=== PATIENT | female | born 1985 | race Caucasian/White ===

== ENCOUNTER → 2016-11-25 | Outpatient (CLI) | payer OTHER ==
[2014-09-20 22:23] VITALS: BP 112/56
[~2016-11-25] MED LIST: ACET325T9 PO; ALBU8.5H8 IH; CETI10TA22 PO; METO10TA81 PO; NORG1TAB7 PO; OMEP40CA2 PO; ONDA4TAB12 PO; PSEU120T46 PO
--- NOTE | 2016-11-25 10:54 | RAD ---
DATE: 11/25/2016 EXAM: DIGITAL DIAGNOSTIC BILATERAL, BREAST RIGHT HISTORY: Breast lump COMPARISON: Baseline study This study was interpreted with the benefit of Computerized Aided Detection (CAD). The breast parenchyma is heterogeneously dense, which could reduce sensitivity of mammography. Breast parenchyma level C. FINDINGS: A BB was placed over the area of palpable concern at the 10-11 o'clock location on the right. The fibroglandular tissues in the breasts are symmetric. No mass is identified. No microcalcifications are seen. A medium-sized benign-appearing lymph node is noted in the right axillary region. Right breast ultrasound, 11/25/2016: A target ultrasound exam of the upper outer quadrant of the right breast was performed. Normal heterogeneous fibroglandular shadows are seen. No cystic or solid breast mass is evident. IMPRESSION: 1. No mammographic evidence of malignancy in either breast. 2. The targeted ultrasound exam of the right breast reveals no abnormality. Further clinical surveillance of any area of palpable concern is suggested. BI-RADS CATEGORY: 1 NEGATIVE RECOMMENDED FOLLOW-UP: CLIN FOLLOW UP IMAGING CLINICALLY INDICATED PQRS compliance statement: Patient information was entered into a reminder system with a target due date for the next mammogram. Mammography is a sensitive method for finding small breast cancers, but it does not detect them all and is not a substitute for careful clinical examination. A negative mammogram does not negate a clinically suspicious finding and should not result in delay in biopsying a clinically suspicious abnormality. "Our facility is accredited by the [employer] Mammography Program."
== END | disposition home or self-care (01) ==
LOC: US 09:56
PROVIDERS: ATTEND Nurse Practitioner Family
DX: N63 Unspecified lump in breast (principal)
CPT/HCPCS: 76641; G0204; 77066

== ENCOUNTER → 2017-09-30 | Outpatient (CLI) | payer OTHER ==
[2014-09-20 22:23] VITALS: BP 112/56
[~2017-09-30] MED LIST changes: +PSEU120T10 PO; -PSEU120T46 PO
--- NOTE | 2017-09-30 09:34 | RAD ---
Three-view left ankle radiographs 09/30/2017 CLINICAL HISTORY: Left ankle pain. The patient fell one week ago. AP, lateral and oblique digital radiographs of the left ankle were obtained. The left ankle mortise is intact. No fracture or dislocation of the left ankle is seen. IMPRESSION: No fracture or dislocation of the left ankle is seen. Electronically signed by: Patric Lyman MD (09/30/2017 9:30 AM) [facility]
== END | disposition home or self-care (01) ==
LOC: RAD 08:51
PROVIDERS: ATTEND Physician Assistant Medical
DX: M25.572 Pain in left ankle and joints of left foot (principal); Z91.81 History of falling
CPT/HCPCS: 73610

== ENCOUNTER 2018-02-21 02:59 | Emergency (ER) | payer OTHER ==
[~2018-02-21] VITALS: Ht 162.6 cm; Wt 73.5 kg
[2018-02-21] MEDS ORDERED: PRED20TA PO (03:12)
--- NOTE | 2018-02-21 03:14 | PHYS DOC ---
Adult General Chief Complaint Chief Complaint rash HPI HPI This is very pleasant 32 years old female presented to the emergency department with a one-week history of hives all over her body chest abdomen and legs upper extremities is been trying today could have Benadryl at home without much help Review of Systems Review of Systems Constitutional: Denies fever or chills [] Eyes: Denies change in visual acuity, redness, or eye pain [] HENT: Denies nasal congestion or sore throat [] Respiratory: Denies cough or shortness of breath [] Cardiovascular: No additional information not addressed in HPI [] GI: Denies abdominal pain, nausea, vomiting, bloody stools or diarrhea [] : Denies dysuria or hematuria [] Musculoskeletal: Denies back pain or joint pain [] Integument: Denies rash or skin lesions [] Neurologic: Denies headache, focal weakness or sensory changes [] Endocrine: Denies polyuria or polydipsia [] All other systems were reviewed and found to be within normal limits, except as documented in this note. Allergies Allergies Allergies Coded Allergies Type Severity Reaction Last Updated Verified carbinoxamine Allergy Mild HIVES 09/12/13 Yes codeine Allergy Mild HEADACHE 09/12/13 Yes latex Allergy Mild RESH 09/12/13 Yes promethazine Adverse Reaction Intermediate CONVULSION 09/12/13 No Physical Exam Physical Exam Constitutional: Well developed, well nourished, no acute distress, non-toxic appearance. [] HENT: Normocephalic, atraumatic, bilateral external ears normal, oropharynx moist, no oral exudates, nose normal. [] Eyes: PERRLA, EOMI, conjunctiva normal, no discharge. [] Neck: Normal range of motion, no tenderness, supple, no stridor. [] Cardiovascular:Heart rate regular rhythm, no murmur [] Lungs & Thorax: Bilateral breath sounds clear to auscultation [] Abdomen: Bowel sounds normal, soft, no tenderness, no masses, no pulsatile masses. [] Back: No tenderness, no CVA tenderness. [] Extremities: No tenderness, no cyanosis, no clubbing, ROM intact, no edema. [] Neurologic: Alert and oriented X 3, normal motor function, normal sensory function, no focal deficits noted. [] Psychologic: Affect normal, judgement normal, mood normal. [] EKG EKG [] Radiology/Procedures Radiology/Procedures [] Course & Med Decision Making Course & Med Decision Making Pertinent Labs and Imaging studies reviewed. (See chart for details) [] Final Impression Final Impression [] Problems: (1) Hives Dragon Disclaimer Dragon Disclaimer This electronic medical record was generated, in whole or in part, using a voice recognition dictation system. SERA MORENO MD Feb 21, 2018 03:14
[2018-02-21] MEDS ORDERED: FAMOTIDINE 20 MG TABLET PO ONE (03:15)
[2018-02-21] MEDS ORDERED: diphenhydrAMINE HCL 25 MG CAPSULE PO ONE ×2 (03:15→03:24)
[2018-02-21] MEDS ORDERED: predniSONE 20 MG TABLET PO ONE (03:15)
[2018-02-21] MEDS ORDERED: FAMOTIDINE 20 MG TABLET ONE (03:24)
[2018-02-21] MEDS ORDERED: predniSONE 20 MG TABLET ONE (03:24)
[2018-02-21] MEDS: diphenhydrAMINE 50 MG/ML VIAL IV ONE (03:43)
[2018-02-21] MEDS: methylPREDNISolone SOD SUCC PF 125 MG/2 ML VIAL. IV ONE (03:44)
[2018-02-21] MEDS: FAMOTIDINE 20 MG/2 ML VIAL IVP ONE (03:44)
[2018-02-21 04:10] VITALS: BP 113/67
[2018-02-22] MEDS ORDERED: TAMS0.4C97 PO (06:46)
[2018-02-22] MEDS ORDERED: OXYC-323 PO (06:46)
[2018-02-22] MEDS ORDERED: ONDA4TAB10 SL (06:46)
== END 2018-02-21 04:10 | disposition home or self-care (01) ==
LOC: ER 02:59
DX: L50.9 Urticaria, unspecified (principal); Z88.8 Allergy status to other drugs, medicaments and biological substances; Z88.5 Allergy status to narcotic agent; Z91.040 Latex allergy status
CPT/HCPCS: 96374; 96375; 99284; J1200; J2930; S0028

== ENCOUNTER 2018-02-22 05:11 | Emergency (ER) | payer OTHER ==
[~2018-02-22] VITALS: Ht 162.6 cm; Wt 73.5 kg
[~2018-02-22 05:11] MED LIST changes: +PRED20TA PO
--- NOTE | 2018-02-22 05:43 | ED.ADGEN ---
Past History Past Medical History: Asthma, Other (SERA MORENO MD) Past Surgical History: Cholecystectomy, Other (SERA MORENO MD) Smoking: Non-smoker Alcohol Use: None Drug Use: None (SERA MORENO MD) Adult General Chief Complaint Chief Complaint Abdominal pain (SERA MORENO MD) HPI HPI 32 years old female presented to the emergency department with left flank pain radiates to the left lower quadrant associated with nausea. [Around 3:30 in the morning no fever no chills no urgency . No hematuria (SERA MORENO MD) Review of Systems Review of Systems Constitutional: Denies fever or chills [] Eyes: Denies change in visual acuity, redness, or eye pain [] HENT: Denies nasal congestion or sore throat [] Respiratory: Denies cough or shortness of breath [] Cardiovascular: No additional information not addressed in HPI [] GI: Denies abdominal pain, nausea, vomiting, bloody stools or diarrhea [] Musculoskeletal: Denies back pain or joint pain [] Integument: Denies rash or skin lesions [] Neurologic: Denies headache, focal weakness or sensory changes [] Endocrine: Denies polyuria or polydipsia [] All other systems were reviewed and found to be within normal limits, except as documented in this note. (SERA MORENO MD) Current Medications Current Medications Current Medications Medications (Trade) Dose Ordered Sig/Ivan Start Time Stop Time Status Last Admin Dose Admin Ketorolac Tromethamine (Toradol 30mg Vial) 30 mg 1X ONCE 02/22/18 06:30 02/22/18 06:31 DC 02/22/18 06:06 30 MG Morphine Sulfate (Morphine 4mg Syringe) 4 mg 1X ONCE 02/22/18 06:00 02/22/18 06:01 DC 02/22/18 05:57 4 MG Ondansetron HCl (Zofran) 4 mg 1X ONCE 02/22/18 06:30 02/22/18 06:31 DC 02/22/18 06:07 4 MG Sodium Chloride 1,000 ml @ 1,000 mls/hr 1X ONCE 02/22/18 06:30 02/22/18 07:29 02/22/18 06:08 1,000 MLS/HR (REGAN NGUYEN MD) Allergies Allergies Allergies Coded Allergies Type Severity Reaction Last Updated Verified carbinoxamine Allergy Mild HIVES 09/12/13 Yes codeine Allergy Mild HEADACHE 09/12/13 Yes latex Allergy Mild RESH 09/12/13 Yes promethazine Adverse Reaction Intermediate CONVULSION 09/12/13 No (REGAN NGUYEN MD) Physical Exam Physical Exam Constitutional: Well developed, well nourished, no acute distress, non-toxic appearance. [] HENT: Normocephalic, atraumatic, bilateral external ears normal, oropharynx moist, no oral exudates, nose normal. [] Eyes: PERRLA, EOMI, conjunctiva normal, no discharge. [] Neck: Normal range of motion, no tenderness, supple, no stridor. [] Cardiovascular:Heart rate regular rhythm, no murmur [] Lungs & Thorax: Bilateral breath sounds clear to auscultation [] Abdomen: Bowel sounds normal, soft, no tenderness, no masses, no pulsatile masses. [] Skin: Warm, dry, no erythema, no rash. [] Back: No tenderness, no CVA tenderness. [] Extremities: No tenderness, no cyanosis, no clubbing, ROM intact, no edema. [] Neurologic: Alert and oriented X 3, normal motor function, normal sensory function, no focal deficits noted. [] Psychologic: Affect normal, judgement normal, mood normal. [] (SERA MORENO MD) Current Patient Data Vital Signs Vital Signs Date Time Temp Pulse Resp B/P (MAP) Pulse Ox O2 Delivery O2 Flow Rate FiO2 02/22/18 05:57 18 98 Room Air 02/22/18 05:15 97.6 89 (REGAN NGUYEN MD) Lab Results Laboratory Tests Test 02/22/18 05:20 02/22/18 05:31 02/22/18 05:45 Urine Collection Type Unknown Urine Color Yellow Urine Clarity Clear Urine pH 6.0 Urine Specific [place] 1.025 Urine Protein Neg (NEG-TRACE) Urine Glucose (UA) Neg mg/dL (NEG) Urine Ketones (Stick) Neg mg/dL (NEG) Urine Blood Trace (NEG) Urine Nitrite Neg (NEG) Urine Bilirubin Neg (NEG) Urine Urobilinogen Dipstick 0.2 mg/dL (0.2 mg/dL) Urine Leukocyte Esterase Neg (NEG) Urine RBC Occ /HPF (0-2) Urine WBC Occ /HPF (0-4) Urine Squamous Epithelial Cells Many /LPF Urine Bacteria 0 /HPF (0-FEW) Urine Test Negative (NEG) POC Urine HCG, Qualitative hcg negative (Negative) White Blood Count 13.0 x10^3/uL (4.0-11.0) H Red Blood Count 4.05 x10^6/uL (3.50-5.40) Hemoglobin 12.9 g/dL (12.0-15.5) Hematocrit 37.8 % (36.0-47.0) Mean Corpuscular Volume 93 fL (79-100) Mean Corpuscular Hemoglobin 32 pg (25-35) Mean Corpuscular Hemoglobin Concent 34 g/dL (31-37) Red Cell Distribution Width 12.7 % (11.5-14.5) Platelet Count 375 x10^3/uL (140-400) Neutrophils (%) (Auto) 77 % (31-73) H Lymphocytes (%) (Auto) 15 % (24-48) L Monocytes (%) (Auto) 8 % (0-9) Eosinophils (%) (Auto) 0 % (0-3) Basophils (%) (Auto) 0 % (0-3) Neutrophils # (Auto) 10.1 x10^3uL (1.8-7.7) H Lymphocytes # (Auto) 1.9 x10^3/uL (1.0-4.8) Monocytes # (Auto) 1.0 x10^3/uL (0.0-1.1) Eosinophils # (Auto) 0.0 x10^3/uL (0.0-0.7) Basophils # (Auto) 0.0 x10^3/uL (0.0-0.2) Sodium Level 141 mmol/L (136-145) Potassium Level 3.7 mmol/L (3.5-5.1) Chloride Level 104 mmol/L (98-107) Carbon Dioxide Level 26 mmol/L (21-32) Anion Gap 11 (6-14) Blood Urea Nitrogen 11 mg/dL (7-20) Creatinine 0.9 mg/dL (0.6-1.0) Estimated GFR (Cockcroft-Gault) 72.6 BUN/Creatinine Ratio 12 (6-20) Glucose Level 134 mg/dL (70-99) H Calcium Level 9.0 mg/dL (8.5-10.1) Total Bilirubin 0.2 mg/dL (0.2-1.0) Aspartate Amino Transferase (AST) 10 U/L (15-37) L Alanine Aminotransferase (ALT) 25 U/L (14-59) Alkaline Phosphatase 64 U/L (46-116) Total Protein 7.4 g/dL (6.4-8.2) Albumin 4.0 g/dL (3.4-5.0) Albumin/Globulin Ratio 1.2 (1.0-1.7) Lipase 88 U/L (73-393) (REGAN NGUYEN MD) EKG EKG [] (ESRA MORENO MD) Radiology/Procedures Radiology/Procedures [] (SERA MORENO MD) Radiology/Procedures PROCEDURE: CT ABDOMEN PELVIS WO CONTRAST CT abdomen and pelvis without contrast: Reason for examination: Left flank pain and left lower quadrant pain. Helical images were obtained through the abdomen and pelvis with no intravenous or oral contrast administered. Reconstruction was performed in sagittal and coronal planes. Exposure: One or more of the following individualized dose reduction techniques were utilized for this examination: 1. Automated exposure control 2. Adjustment of the mA and/or kV according to patient size 3. Use of iterative reconstruction technique. The lung bases are clear. The heart size is normal with no pericardial effusion evident. No abnormality seen at the liver, spleen, adrenal glands or pancreas. The gallbladder surgically absent. The abdominal aorta and inferior vena cava show no acute abnormalities. No abnormality seen at the appendix. The intestinal tract shows no dilatation or obstruction at the colon and no evidence of diverticulosis or diverticulitis. The small intestine is not distended or obstructed. The stomach is not distended. The right kidney shows no renal masses or hydronephrosis. There are small nonobstructing calculi present in the right kidney but no obstructive uropathy is seen. The left kidney shows no renal mass. There are small nonobstructing calculi in the left kidney. There is also mild hydronephrosis which appears to be due to an obstructing calculus at the left ureteral vesicle junction measuring 3.9 mm in greatest dimension. The bladder is not distended. No abnormality seen at the uterus or ovaries. There is a trace of free fluid in the pelvic cul-de-sac. No acute bony abnormalities are seen. IMPRESSION: 3.9 mm calculus at the left ureterovesical junction with mild hydronephrosis. Small nonobstructing calculi in the kidneys bilaterally. Small amount of free fluid in the pelvic cul-de-sac. (REGAN NGUYEN MD) Course & Med Decision Making Course & Med Decision Making Pertinent Labs and Imaging studies reviewed. (See chart for details) [] (SERA MORENO MD) Course & Med Decision Making 6:40 AM: Patient care was assumed from Dr. Moreno at 6 AM shift change. The patient awoke this morning with sudden onset left flank pain, and left lower abdominal pain. She has not had any hematuria. She has had some nausea and vomiting. On exam, she has diffuse left-sided mid and lower abdominal tenderness to palpation, with left CVA tenderness. She has no definite focal suprapubic tenderness to palpation. She has not had any vaginal bleeding or discharge. She has not had any fevers or chills. Her labs been reviewed, and are largely unremarkable, save for mild leukocytosis. Urinalysis is unremarkable. She does have evidence for kidney stone on CT. I discussed test results with the patient, was feeling significantly better at this time. Her pain is significantly improved. I discussed home care plan, the need for close urology follow-up, urine straining , and return precautions. (RGEAN NGUYEN MD) Final Impression Final Impression [] Problems: (1) Flank pain (SERA MORENO MD) Final Impression Kidney stone (REGAN NGUYEN MD) Dragon Disclaimer Dragon Disclaimer This electronic medical record was generated, in whole or in part, using a voice recognition dictation system. (SERA MORENO MD) SERA MORENO MD Feb 22, 2018 05:43 REGAN NGUYEN MD Feb 22, 2018 06:43
[2018-02-22 05:57] LABS: BASO % 0 % (0-3); EOS % 0 % (0-3); HEMATOCRIT 37.8 % (36.0-47.0); HEMOGLOBIN 12.9 g/dL (12.0-15.5); LYMPH # 1.9 x10^3/uL (1.0-4.8); LYMPH % 15 % (24-48); MEAN CORPUSCULAR HEMOGLOBIN 32 pg (25-35); MEAN CORPUSCULAR HGB CONC 34 g/dL (31-37); MEAN CORPUSCULAR VOLUME 93 fL (79-100); MONO % 8 % (0-9); NEUT # 10.1 x10^3uL (1.8-7.7); NEUT % 77 % (31-73); PLATELET COUNT 375 x10^3/uL (140-400); RED BLOOD COUNT 4.05 x10^6/uL (3.50-5.40); RED CELL DISTRIBUTION WIDTH 12.7 % (11.5-14.5)
[2018-02-22 06:00] LABS: CLARITY,URINE CLEAR; COLOR,URINE YELLOW
[2018-02-22] MEDS ORDERED: MORPHINE SULFATE 4 MG/ML DISP.SYRIN. IV ONE (06:00)
[2018-02-22 06:01] LABS: BACTERIA,URINE 0 /HPF (0-FEW); BILIRUBIN,URINE NEG (NEG); GLUCOSE,URINE NEG (NEG); NITRITE,URINE NEG (NEG); RBC,URINE OCC /HPF (0-2); SQUAMOUS EPITHELIAL CELL,UR MANY /LPF; U PREG PATIENT NEGATIVE (NEG); UROBILINOGEN,URINE 0.2 mg/dL (0.2 mg/dL); WBC,URINE OCC /HPF (0-4)
[2018-02-22 06:07] LABS: ALBUMIN/GLOBULIN RATIO 1.2 (1.0-1.7); CREATININE 0.9 mg/dL (0.6-1.0); GFR 72.6; POTASSIUM 3.7 mmol/L (3.5-5.1); TOTAL BILIRUBIN 0.2 mg/dL (0.2-1.0); TOTAL PROTEIN 7.4 g/dL (6.4-8.2)
[2018-02-22 06:27] VITALS: BP 112/60
[2018-02-22] MEDS ORDERED: KETOROLAC 30 MG/ML VIAL. IV ONE (06:30)
[2018-02-22] MEDS ORDERED: IV NORMAL SALINE 1,000ML 1,000 ML IV ONE (06:30)
[2018-02-22] MEDS ORDERED: ONDANSETRON PF 4 MG/2 ML VIAL. IV ONE (06:30)
--- NOTE | 2018-02-22 06:30 | RAD ---
CT abdomen and pelvis without contrast: Reason for examination: Left flank pain and left lower quadrant pain. Helical images were obtained through the abdomen and pelvis with no intravenous or oral contrast administered. Reconstruction was performed in sagittal and coronal planes. Exposure: One or more of the following individualized dose reduction techniques were utilized for this examination: 1. Automated exposure control 2. Adjustment of the mA and/or kV according to patient size 3. Use of iterative reconstruction technique. The lung bases are clear. The heart size is normal with no pericardial effusion evident. No abnormality seen at the liver, spleen, adrenal glands or pancreas. The gallbladder surgically absent. The abdominal aorta and inferior vena cava show no acute abnormalities. No abnormality seen at the appendix. The intestinal tract shows no dilatation or obstruction at the colon and no evidence of diverticulosis or diverticulitis. The small intestine is not distended or obstructed. The stomach is not distended. The right kidney shows no renal masses or hydronephrosis. There are small nonobstructing calculi present in the right kidney but no obstructive uropathy is seen. The left kidney shows no renal mass. There are small nonobstructing calculi in the left kidney. There is also mild hydronephrosis which appears to be due to an obstructing calculus at the left ureteral vesicle junction measuring 3.9 mm in greatest dimension. The bladder is not distended. No abnormality seen at the uterus or ovaries. There is a trace of free fluid in the pelvic cul-de-sac. No acute bony abnormalities are seen. IMPRESSION: 3.9 mm calculus at the left ureterovesical junction with mild hydronephrosis. Small nonobstructing calculi in the kidneys bilaterally. Small amount of free fluid in the pelvic cul-de-sac. Electronically signed by: Janice Hoyt MD (02/22/2018 6:27 AM) [id number]
[2018-02-22] MEDS ORDERED: OXYC-323 PO (06:46)
[2018-02-22] MEDS ORDERED: TAMS0.4C97 PO (06:46)
[2018-02-22] MEDS ORDERED: ONDA4TAB10 SL (06:46)
== END 2018-02-22 06:55 | disposition home or self-care (01) ==
LOC: ER 05:11
DX: N13.2 Hydronephrosis with renal and ureteral calculous obstruction (principal); R11.2 Nausea with vomiting, unspecified; J45.909 Unspecified asthma, uncomplicated; Z90.49 Acquired absence of other specified parts of digestive tract; Z88.5 Allergy status to narcotic agent; Z91.040 Latex allergy status; Z88.8 Allergy status to other drugs, medicaments and biological substances
CPT/HCPCS: 36415; 74176; 80053; 81001; 81025; 83690; 85025; 96361; 96374; 96375; 99285; J1885; J2270; J2405; J7030

== ENCOUNTER 2018-03-02 22:15 | Emergency (ER) | payer OTHER ==
[~2018-03-02] VITALS: Ht 160 cm; Wt 73.5 kg
[~2018-03-02 22:15] MED LIST changes: +ONDA4TAB10 SL; +OXYC-323 PO; +TAMS0.4C97 PO
[2018-03-02] MEDS ORDERED: FAMOTIDINE 20 MG TABLET PO ONE ×2 (22:30→23:15)
[2018-03-02] MEDS ORDERED: predniSONE 10 MG TABLET PO ONE (22:30)
[2018-03-02] MEDS ORDERED: diphenhydrAMINE HCL 25 MG CAPSULE PO ONE (22:30)
[2018-03-02 22:31] VITALS: BP 114/84
[2018-03-02] MEDS ORDERED: FAMO-63 PO (22:37)
[2018-03-02] MEDS ORDERED: FEXO180T81 PO (22:37)
[2018-03-02] MEDS ORDERED: PRED50TA PO (22:37)
[2018-03-02] MEDS ORDERED: DEXAMETHASONE SOD PHOS 10 MG/ML VIAL IM ONE (22:45)
[2018-03-02] MEDS ORDERED: diphenhydrAMINE 50 MG/ML VIAL IM ONE (22:45)
[2018-03-02] MEDS ORDERED: HYDR50CA PO (22:58)
[2018-03-02] MEDS ORDERED: FAMOTIDINE 20 MG TABLET ONE (23:08)
--- NOTE | 2018-03-03 05:16 | ED.ADGEN ---
Past History Past Medical History: Asthma, Other Past Surgical History: Cholecystectomy, Other Smoking: Non-smoker Alcohol Use: None Drug Use: None Adult General Chief Complaint Chief Complaint Hives HPI HPI Patient is a 32-year-old female treated for hives several days ago with prednisone and Pepcid and Benadryl presents with recurrent prostatitis starting 2 days ago. No shortness breath, wheezing, chest tenderness. Diffuse blotchy hives over torso, extremities. Patient has history of skin allergy, hives and has occurred extensive allergy treatment and testing. She is unable to identify new, allergens, household products foods or medications.[] Review of Systems Review of Systems Review symptoms as per history of present illness. All other review symptoms are negative. a [] All other systems were reviewed and found to be within normal limits, except as documented in this note. Current Medications Current Medications Current Medications Medications (Trade) Dose Ordered Sig/Ivan Start Time Stop Time Status Last Admin Dose Admin Dexamethasone Sodium Phosphate (Decadron) 10 mg 1X ONCE 03/02/18 22:45 03/02/18 22:46 DC 03/02/18 22:50 10 MG Diphenhydramine HCl (Benadryl) 50 mg 1X ONCE 03/02/18 22:45 03/02/18 22:46 DC 03/02/18 23:04 50 MG Famotidine (Pepcid) 20 mg STK-MED ONCE 03/02/18 23:08 03/02/18 23:11 DC Prednisone (Prednisone) 50 mg 1X ONCE 03/02/18 22:30 03/02/18 22:34 DC Allergies Allergies Allergies Coded Allergies Type Severity Reaction Last Updated Verified carbinoxamine Allergy Mild HIVES 09/12/13 Yes codeine Allergy Mild HEADACHE 09/12/13 Yes latex Allergy Mild RESH 09/12/13 Yes promethazine Adverse Reaction Intermediate CONVULSION 09/12/13 No Physical Exam Physical Exam Constitutional: Well developed, well nourished, no acute distress, non-toxic appearance. [] HENT: Normocephalic, atraumatic, bilateral external ears normal, oropharynx moist, no oral exudates, nose normal. [] Eyes: PERRLA, EOMI, conjunctiva normal, no discharge. [] Neck: Normal range of motion, no tenderness, supple, no stridor. [] Cardiovascular:Heart rate regular rhythm, no murmur [] Lungs & Thorax: Bilateral breath sounds clear to auscultation [] Abdomen: Bowel sounds normal, soft, no tenderness, no masses, no pulsatile masses. [] Skin: Diffuse blotchy hives to torso, extremities. [] Back: No tenderness, no CVA tenderness. [] Extremities: No tenderness, no cyanosis, no clubbing, ROM intact, no edema. [] Neurologic: Alert and oriented X 3, normal motor function, normal sensory function, no focal deficits noted. [] Psychologic: Affect normal, judgement normal, mood normal. [] Current Patient Data Vital Signs Vital Signs Date Time Temp Pulse Resp B/P (MAP) Pulse Ox O2 Delivery O2 Flow Rate FiO2 03/02/18 22:31 98.4 109 16 98 EKG EKG [] Radiology/Procedures Radiology/Procedures [] Course & Med Decision Making Course & Med Decision Making Pertinent Labs and Imaging studies reviewed. (See chart for details) [Steroids, antihistamines given. Recommend continued care and close PCP/ scientific laboratory supervisor follow-up.] Final Impression Final Impression [#1 urticaria] Dragon Disclaimer Dragon Disclaimer This electronic medical record was generated, in whole or in part, using a voice recognition dictation system. SHANIKA TORRES DO Mar 03, 2018 05:16
== END 2018-03-02 23:10 | disposition home or self-care (01) ==
LOC: ER 22:15
DX: L50.8 Other urticaria (principal); J45.909 Unspecified asthma, uncomplicated; Z88.5 Allergy status to narcotic agent; Z91.040 Latex allergy status; Z88.8 Allergy status to other drugs, medicaments and biological substances
CPT/HCPCS: 96372; 99284; J1100; J1200

== ENCOUNTER 2018-07-03 16:41 | Emergency (ER) | payer OTHER ==
[~2018-07-03] VITALS: Ht 160 cm; Wt 75.7 kg
[~2018-07-03 16:41] MED LIST changes: +ALBU2.5V8 IH; -ALBU8.5H8 IH; +FAMO-63 PO; +FEXO180T81 PO; +HYDR50CA PO; -OXYC-323 PO; +OXYC1TAB15 PO; +PRED50TA PO
[2018-07-03 16:58] VITALS: BP 154/83
[2018-07-03] MEDS ORDERED: ORPH-16 PO (17:08)
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
[2018-07-03] MEDS ORDERED: ONDA4TAB12 PO (17:26)
[2018-07-03] MEDS ORDERED: ONDANSETRON ODT 4 MG TAB.RAPDIS ONE (17:27)
[2018-07-03] MEDS ORDERED: ONDANSETRON ODT 4 MG TAB.RAPDIS PO ONE (17:30)
[2018-07-03] MEDS ORDERED: KETOROLAC 30 MG/ML VIAL. IM ONE (17:30)
== END 2018-07-03 17:29 | disposition home or self-care (01) ==
LOC: ER 16:43
DX: S39.012A Strain of muscle, fascia and tendon of lower back, initial encounter (principal); V43.52XA Car driver injured in collision with other type car in traffic accident, initial encounter; Y93.I9 Activity, other involving external motion; Y92.488 Other paved roadways as the place of occurrence of the external cause; Y99.8 Other external cause status
CPT/HCPCS: 96372; 99283; J1885; Q0162

== ENCOUNTER → 2018-07-24 | Outpatient (CLI) | payer OTHER ==
[2018-07-03 16:58] VITALS: BP 154/83
[~2018-07-24] MED LIST changes: +ORPH-16 PO
--- NOTE | 2018-07-24 08:56 | RAD ---
Thyroid ultrasound, 07/24/2018: HISTORY: Thyroid enlargement The right lobe of the gland measures 5.0 x 2.1 x 1.3 cm while the left lobe of the gland measures 4.7 x 1.6 x 1.3 cm. The thyroid echo pattern is heterogeneous with numerous tiny subcentimeter nodules present bilaterally. There appears to be a faint isoechoic nodule medially in the lower pole of the left lobe of the gland measuring 12 mm in greatest diameter. No calcifications are seen. A 7 mm smooth predominantly hypoechoic nodule is present laterally in the right lower lobe superiorly. There are low level internal echoes with posterior acoustic enhancement suggesting a complicated cyst. There is a cluster of 2 smaller but otherwise similar nodules in the upper pole of the left lobe of the gland. An 8 mm relatively isoechoic nodule is seen along the posterior/inferior margin of the right lobe of the thyroid gland. It is unclear whether this represents an extension of thyroid tissue or a separate nodule such as a prominent parathyroid gland. A similar small nodule is seen along the lower pole of the left lobe of the gland. IMPRESSION: 1. Enlarged multinodular thyroid gland as described above. The sonographic characteristics of these nodules are nonspecific, however, no highly suspicious nodules are seen. 2. Small nodules along the inferior margins of both lobes of the thyroid gland raising possibility of prominent parathyroid glands. Correlation with laboratory findings is suggested. Electronically signed by: Francisco Victor MD (07/24/2018 8:53 AM) [facility]
== END | disposition home or self-care (01) ==
LOC: US 07:21
PROVIDERS: ATTEND Registered Nurse
DX: E04.2 Nontoxic multinodular goiter (principal)
CPT/HCPCS: 76536

== ENCOUNTER 2019-07-10 03:19 | Emergency (ER) | payer OTHER ==
[~2019-07-10] VITALS: Ht 160 cm; Wt 81.3 kg
[~2019-07-10 03:19] MED LIST changes: -CETI10TA22 PO; +CETI10TA24 PO
[2019-07-10 03:38] VITALS: BP 154/83
--- NOTE | 2019-07-10 03:48 | PHYS DOC ---
Past History Past Medical History: Asthma, Migraines, Other Past Surgical History: Cholecystectomy, Other Smoking: Non-smoker Alcohol Use: Occasionally Drug Use: None Adult General Chief Complaint Chief Complaint: SKIN RASH/ABSCESS HPI HPI 33-year-old female presents with rash. The patient woke up at 245 this morning feeling jittery and a bit short of breath. She looked at her skin and realized that she had urticaria breaking out in [place] locations. The patient has been having urticarial reactions lately for an unknown reason. She sees a layer up who thinks that she may have small vessel vasculitis. She was told that if she ever had rash with any shortness of breath she should come to the hospital. The patient took Zyrtec, ranitidine, and 75 mg Benadryl prior to arrival. She feels like the shortness of breath is better at this time. The rash has not receded, but she does not believe it has spread anymore. She denies fever or chills. Review of Systems Review of Systems Constitutional: Denies fever or chills [] Eyes: Denies change in visual acuity, redness, or eye pain [] HENT: Denies nasal congestion or sore throat [] Respiratory: Denies cough or shortness of breath [] Cardiovascular: No additional information not addressed in HPI [] GI: Denies abdominal pain, nausea, vomiting, bloody stools or diarrhea [] : Denies dysuria or hematuria [] Musculoskeletal: Denies back pain or joint pain [] Integument: Rash [] Neurologic: Denies headache, focal weakness or sensory changes [] Endocrine: Denies polyuria or polydipsia [] All other systems were reviewed and found to be within normal limits, except as documented in this note. Current Medications Current Medications Current Medications Medications (Trade) Dose Ordered Sig/[facility] Start Time Stop Time Status Last Admin Dose Admin Methylprednisolone Sodium Succinate (SOLU-Medrol 125MG VIAL) 125 mg 1X ONCE 07/10/19 03:45 07/10/19 03:46 UNV Allergies Allergies Allergies Coded Allergies Type Severity Reaction Last Updated Verified carbinoxamine Allergy Mild HIVES 09/12/13 Yes codeine Allergy Mild HEADACHE 09/12/13 Yes latex Allergy Mild RESH 09/12/13 Yes promethazine Adverse Reaction Intermediate CONVULSION 09/12/13 No Physical Exam Physical Exam Constitutional: Well developed, well nourished, no acute distress, non-toxic appearance. [] HENT: Normocephalic, atraumatic, bilateral external ears normal, oropharynx moist, no oral exudates, nose normal. [] Eyes: PERRLA, EOMI, conjunctiva normal, no discharge. [] Neck: Normal range of motion, no tenderness, supple, no stridor. [] Cardiovascular:Heart rate regular rhythm, no murmur [] Lungs & Thorax: Bilateral breath sounds clear to auscultation [] Abdomen: Bowel sounds normal, soft, no tenderness, no masses, no pulsatile masses. [] Skin: Urticaria on the patient's upper back, bilateral arms bilateral legs.[] Back: No tenderness, no CVA tenderness. [] Extremities: No tenderness, no cyanosis, no clubbing, ROM intact, no edema. [] Neurologic: Alert and oriented X 3, normal motor function, normal sensory function, no focal deficits noted. [] Psychologic: Affect normal, judgement normal, mood normal. [] EKG EKG [] Radiology/Procedures Radiology/Procedures [] Course & Med Decision Making Course & Med Decision Making Pertinent Labs and Imaging studies reviewed. (See chart for details) The patient is having an urticarial reaction to something. She is were taken in a drill and antihistamines. I ordered 125 of Solu-Medrol IM. We will observe her and ensure that her symptoms do not progress. The patient's redness has started to proceed. She's had no further issues with her breathing. [] Dragon Disclaimer Dragon Disclaimer This electronic medical record was generated, in whole or in part, using a voice recognition dictation system. Departure Departure: Impression: Primary Impression: Hives Disposition: HOME, SELF-CARE Condition: IMPROVED Referrals: MELCHOR BAUTISTA (PCP) Patient Instructions: Eliseo Cgua-mr-Wldm SHANIKA ROY DO Jul 10, 2019 03:48
[2019-07-10] MEDS ORDERED: methylPREDNISolone SOD SUCC PF 125 MG/2 ML VIAL. IM ONE (04:00)
== END 2019-07-10 04:20 | disposition home or self-care (01) ==
LOC: ER 03:19
DX: L50.9 Urticaria, unspecified (principal); J45.909 Unspecified asthma, uncomplicated; G43.909 Migraine, unspecified, not intractable, without status migrainosus; Z88.5 Allergy status to narcotic agent; Z91.040 Latex allergy status; Z88.8 Allergy status to other drugs, medicaments and biological substances
CPT/HCPCS: 96372; 99283; J2930

== ENCOUNTER → 2020-02-03 | Outpatient (CLI) | payer OTHER ==
[~2020-02-03] MED LIST changes: +BIRTH CONTROL; -CETI10TA24 PO; +CETI10TA74 PO; +FLUT9.9S NS; +LEVO25TA55 PO; +OMAL150V SQ
== END | disposition home or self-care (01) ==
LOC: LAB 09:05
PROVIDERS: ATTEND Nurse Anesthetist, Certified Registered
DX: Z01.812 Encounter for preprocedural laboratory examination (principal); Z12.11 Encounter for screening for malignant neoplasm of colon; R19.7 Diarrhea, unspecified; Z20.828 Contact with and (suspected) exposure to other viral communicable diseases
CPT/HCPCS: U0003-CS

== ENCOUNTER → 2020-02-06 | Day surgery (SDC) | payer OTHER ==
[~2020-02-06] MED LIST changes: +IPRATRPIUM/ALBUTEROL 0.5/2.5MG 3 ML NEBU. NEB PRN; +IV RINGERS SOLUTION,LACTATED 1,000 ML IV SCH; +LIDOCAINE 2% PF 5 ML VIAL. ONE; +MIDAZOLAM HCL PF 2 MG/2 ML VIAL. IV ONE; +ONDANSETRON PF 4 MG/2 ML VIAL. IV PRN; +ONDANSETRON PF 4 MG/2 ML VIAL. ONE; +PROPOFOL 10,000 MCG/ML (20ML) VIAL IV ONE
[2020-02-06 09:08] LABS: U PREG PATIENT NEGATIVE (NEG)
[2020-02-06 10:35] VITALS: BP 132/77
--- NOTE | 2020-02-07 15:08 | PATHOLOGY ---
[facility] Accession Number: [id number] . 01 Material submitted: . colon - RANDOM COLON BX . 02 Diagnosis: Colonic mucosa, random colon biopsies: - No significant pathologic abnormalities. (JPM:isaías; 02/07/2020) S 02/07/2020 1051 Local . 02 Comment: Sections of the random colon biopsy reveal multiple segments of colonic mucosa. There is no evidence of a chronic destructive colitis, lymphocytic colitis, or collagenous colitis. (JPM:isaías; 02/07/2020) . 02 Electronically signed: . Stefano Toscano MD, Pathologist NPI- [id number] . 01 Gross description: . The specimen is received in formalin, labeled "Alana Tae, random colon biopsy". Received are multiple segments of pale sidhu soft tissue ranging in size from 0.4 to 0.7 cm in maximum dimensions. The specimen is submitted entirely in cassette A1. ([facility]; 02/06/2020) QA/QA 02/06/2020 1822 Local . 02 Pathologist provided ICD-10: Z12.11 . 02 CPT . 639494 Specimen Comment: A courtesy copy of this report has been sent to [phone] Specimen Comment: Report sent to / DR BAUTISTA Performed at: 01 [facility] [address], [place] [id number] MD Damián Rivero MD Phone: [phone] Performed at: 02 [facility] [address] [place], [place] [id number] MD Stefano Toscano MD Phone: [phone]
== END | disposition home or self-care (01) ==
LOC: SURG 08:29
PROVIDERS: ATTEND Internal Medicine Gastroenterology
DX: R19.7 Diarrhea, unspecified (principal); K63.89 Other specified diseases of intestine; J45.909 Unspecified asthma, uncomplicated; G43.909 Migraine, unspecified, not intractable, without status migrainosus; Z90.49 Acquired absence of other specified parts of digestive tract; Z98.890 Other specified postprocedural states; Z79.899 Other long term (current) drug therapy; Z88.6 Allergy status to analgesic agent; Z88.8 Allergy status to other drugs, medicaments and biological substances; Z91.040 Latex allergy status
CPT/HCPCS: 45380; 81025; 87177; 87209; 87493; 87505; 88305; J2001; J2405; J2704; J7120; 36415

== ENCOUNTER → 2021-03-24 | Outpatient (CLI) | payer OTHER ==
[2020-02-06 10:35] VITALS: BP 132/77
[~2021-03-24] MED LIST changes: -IPRATRPIUM/ALBUTEROL 0.5/2.5MG 3 ML NEBU. NEB PRN; -IV RINGERS SOLUTION,LACTATED 1,000 ML IV SCH; -LIDOCAINE 2% PF 5 ML VIAL. ONE; -MIDAZOLAM HCL PF 2 MG/2 ML VIAL. IV ONE; -ONDANSETRON PF 4 MG/2 ML VIAL. IV PRN; -ONDANSETRON PF 4 MG/2 ML VIAL. ONE; -PROPOFOL 10,000 MCG/ML (20ML) VIAL IV ONE
[2021-03-24 13:21] LABS: BASO % 0 % (0-3); EOS % 1 % (0-3); HEMATOCRIT 38.3 % (36.0-47.0); HEMOGLOBIN 12.8 g/dL (12.0-15.5); LYMPH # 1.8 x10^3/uL (1.0-4.8); LYMPH % 33 % (24-48); MEAN CORPUSCULAR HEMOGLOBIN 31 pg (25-35); MEAN CORPUSCULAR HGB CONC 33 g/dL (31-37); MEAN CORPUSCULAR VOLUME 94 fL (79-100); MONO # 0.5 x10^3/uL (0.0-1.1); MONO % 10 % (0-9); NEUT # 3.1 x10^3uL (1.8-7.7); NEUT % 56 % (31-73); PLATELET COUNT 344 x10^3/uL (140-400); RED BLOOD COUNT 4.07 x10^6/uL (3.50-5.40); RED CELL DISTRIBUTION WIDTH 13.9 % (11.5-14.5); WHITE BLOOD COUNT 5.5 x10^3/uL (4.0-11.0)
[2021-03-24 13:27] LABS: ALBUMIN 3.8 g/dL (3.4-5.0); CREATININE 0.7 mg/dL (0.6-1.0); DIRECT BILIRUBIN 0.1 mg/dL (0.0-0.2); GFR 95.2; TOTAL BILIRUBIN 0.3 mg/dL (0.2-1.0); TOTAL PROTEIN 8.1 g/dL (6.4-8.2)
--- NOTE | 2021-03-24 16:30 | RAD ---
History: Reason: GERD, vomiting, dysphagia / Spl. Instructions: / History: Procedure: The patient ate a standard meal containing 2.0 mCi Tc-99m sulfur colloid. Scintigraphic images of the abdomen were obtained. Counts were obtained. Findings: Retention percentages are as follows: 1 Hr: 21 percent 2 Hr:5 percent 3 Hr:0 percent Normal Retention Percentage Range is as Follows: 1 Hr: 35-91% 2 Hr: 2.7-60% 3 Hr: 0.5-28% 4 Hr: 0-10% Impression: No evidence of delayed gastric emptying. Gastric retention is 21 percent at the 1 hour time point wh ich is faster than typically seen. This correlates with the time to half emptying of 40 minutes. Electronically signed by: Talat Esqueda MD (03/24/2021 4:28 PM) [id number]
[2021-03-26 15:14] LABS: C ANCA <1:20 titer (Neg:<1:20); P ANCA <1:20 titer (Neg:<1:20)
== END ==
LOC: NM 08:24
PROVIDERS: ATTEND Internal Medicine Rheumatology
DX: K21.9 Gastro-esophageal reflux disease without esophagitis (principal); R11.0 Nausea; R13.10 Dysphagia, unspecified; K31.84 Gastroparesis; R89.9 Unspecified abnormal finding in specimens from other organs, systems and tissues; L50.1 Idiopathic urticaria
CPT/HCPCS: 78264; 80076; 82565; 85025; 86140; 86256; A9541; 36415

== ENCOUNTER → 2021-04-30 | Outpatient (CLI) | payer OTHER ==
[2020-02-06 10:35] VITALS: BP 132/77
[~2021-04-30] MED LIST changes: +DOXY100C3 PO; +FAMO40TA4 PO; +LACT1CAP37 PO; +MAGN400C PO; +METR-34 PO; +OMAL150S SQ; +OMEP40CA7 PO; +SUMA1TAB12 PO; +naproxen PO
== END ==
LOC: LAB 15:17
PROVIDERS: ATTEND Internal Medicine Gastroenterology
DX: Z01.812 Encounter for preprocedural laboratory examination (principal); Z20.822 Contact with and (suspected) exposure to COVID-19; K21.9 Gastro-esophageal reflux disease without esophagitis; R13.10 Dysphagia, unspecified
CPT/HCPCS: U0003

== ENCOUNTER 2021-05-04 18:49 | Emergency (ER) | payer OTHER ==
[~2021-05-04] VITALS: Ht 160 cm; Wt 82.3 kg
[~2021-05-04 18:49] MED LIST changes: -MAGN400C PO; -SUMA1TAB12 PO; -naproxen PO
[2021-05-04] MEDS ORDERED: SUMAtriptan SUCC 6 MG/0.5 ML VIAL SQ ONE (20:15)
[2021-05-04] MEDS ORDERED: diphenhydrAMINE 50 MG/ML VIAL IVP ONE (20:15)
[2021-05-04] MEDS ORDERED: METOCLOPRAMIDE HCL 10 MG/2 ML VIAL. IVP ONE (20:15)
[2021-05-04] MEDS ORDERED: IV NORMAL SALINE 1,000ML 1,000 ML IV ONE (20:15)
[2021-05-04] MEDS ORDERED: KETOROLAC 15 MG/ML VIAL. IVP ONE (20:15)
--- NOTE | 2021-05-04 20:15 | PHYS DOC ---
Past History Past Medical History: Asthma, Migraines, Other Additional Past Medical Histor: auto immune disease, chronic idiopathic uticaria (MELL MATIAS) Past Surgical History: Cholecystectomy, Tonsillectomy, Other Additional Past Surgical Histo: adenoids removed, sinus, lump removed right breast (MELL MATIAS) Smoking: Non-smoker Alcohol Use: Occasionally Drug Use: None (MELL MATIAS) General Adult EDM: Chief Complaint: HEADACHE HPI: HPI: Patient is a 35 year old female who presents with headache that began 2 days ago. Patient reports she has a history of migraines. Patient gave almost 5 months ago, and was unable to take her normal medications during that time. She called her primary care doctor, Dr. Huston, who stated that because it has been too long since her last in-person visit, she cannot represcribe the medication at this time. For the past couple of days, she has taken ibuprofen, magnesium supplement and [address] Huston recommended she present to the emergency department for "migraine shot and IV fluids." Patient reports associated photophobia, phonophobia, lightheadedness and nausea, but denies any emesis at this time. She states that the Imitrex did help, but she woke up this morning with a full return of symptoms. She has no other complaints at this time. Patient has allergy to Phenergan. (MELL MATIAS) Review of Systems: Review of Systems: ROS negative except as mentioned in HPI. (MELL MATIAS) Allergies: Allergies: Allergies Coded Allergies Type Severity Reaction Last Updated Verified carbinoxamine Allergy Mild HIVES 04/26/21 Yes codeine Allergy Mild HEADACHE 04/26/21 Yes latex Allergy Mild RESH 04/26/21 Yes promethazine Adverse Reaction Intermediate CONVULSION 04/26/21 No Uncoded Allergies Type Severity Reaction Last Updated Verified ADHESIVES Allergy Mild rash 04/26/21 (MELL MATIAS) Physical Exam: PE: Constitutional: Well developed, well nourished, patient appears to be in pain, resting in dark exam room. HENT: Normocephalic, atraumatic, bilateral external ears without deformity or discharge, oropharynx moist, no oral exudates, nose without deformity or discharge. Eyes: PERRLA, EOMI, conjunctiva normal, no discharge. Cardiovascular: Heart rate regular rhythm, no murmur. Lungs & Thorax: Bilateral breath sounds clear to auscultation. Neurologic: Alert and oriented x4, steady and symmetric gait, no focal deficits noted. (MELL MATIAS) Current Patient Data: Vital Signs: Vital Signs Date Time Temp Pulse Resp B/P (MAP) Pulse Ox O2 Delivery O2 Flow Rate FiO2 05/04/21 19:00 97.5 80 16 126/72 (90) 100 Room Air (MELL MATIAS) Heart Score: C/O Chest Pain: No (MELL MATIAS) Course & Med Decision Making: Course & Med Decision Making Pertinent Labs and Imaging studies reviewed. (See chart for details) Patient is a 35-year-old female history of migraine who presents today with a migraine. She was unable to take her normal medications secondary to her , and now her primary wishes to see her in person before represcribing medications. For the past 2 days, she has taken ibuprofen, magnesium under advisement of Dr. Huston as well as to tablets of Imitrex yesterday. Patient will be treated today with subcu Imitrex and Toradol, Reglan, Benadryl IV as well as IV fluid administration. On reevaluation, patient states that she does feel better and she no longer has throbbing behind her eye. She states she does not feel 100%. Discussed with the patient that it will take time and rest for her pain to completely resolve. Additionally, migraines can be quite stressful in the body and she will likely need rest to recover. She will finish her fluids prior to discharge. Patient understands and is agreeable to discharge plan. (MELL MATIAS) Course & Med Decision Making I was the Attending physician on the above date of service of this patient. This patient was evaluated, examined, treated, and dispositioned from the emergency department by the mid-level practitioner. Although I was working at the time , no assistance was requested. Electronically signed, Radha Hernandez DO (RADHA HERNANDEZ DO) Ivette Disclaimer: Ivette Disclaimer: This electronic medical record was generated, in whole or in part, using a voice recognition dictation system. (MELL MATIAS) Departure Departure: Impression: Primary Impression: Migraine without aura and responsive to treatment Disposition: 01 HOME / SELF CARE / HOMELESS Condition: STABLE Referrals: MELCHOR HUSTON (PCP) Patient Instructions: Migraine Headache, [id number], Recurrent Migraine Headache, [id number] Scripts Sumatriptan Succ/Naproxen Sod (TREXIMET 85-500 MG TABLET) 1 Each Tablet 1 TAB PO PRN DAILY PRN for MIGRAINE HEADACHE, #10 TAB 0 Refills Prov: MELL MATIAS 05/04/21 MELL MATIAS May 04, 2021 20:15 RADHA HERNANDEZ DO May 05, 2021 01:35
[2021-05-04] MEDS ORDERED: SUMA1TAB12 PO (21:11)
[2021-05-04 21:21] VITALS: BP 125/70
[2021-05-05] MEDS ORDERED: naproxen PO (09:50)
[2021-05-05] MEDS ORDERED: MAGN400C PO (09:50)
== END 2021-05-04 21:06 | disposition home or self-care (01) ==
LOC: ER 18:49
DX: G43.909 Migraine, unspecified, not intractable, without status migrainosus (principal); J45.909 Unspecified asthma, uncomplicated; Z90.49 Acquired absence of other specified parts of digestive tract
CPT/HCPCS: 96361; 96372; 96374; 96375; 99284; J1200; J1885; J2765; J3030; J7030

== ENCOUNTER → 2021-05-05 | Day surgery (SDC) | payer OTHER ==
[~2021-05-05] MED LIST changes: +IPRATRPIUM/ALBUTEROL 0.5/2.5MG 3 ML NEBU. NEB PRN; +IV RINGERS SOLUTION,LACTATED 1,000 ML IV SCH; +KETAMINE HCL IN NACL, ISO-OSM 50 MG/5 ML SYRINGE ONE; +LIDOCAINE 2% PF 5 ML VIAL. ONE; +MAGN400C PO; +MIDAZOLAM HCL PF 2 MG/2 ML VIAL. IV ONE; +ONDANSETRON PF 4 MG/2 ML VIAL. IV PRN; +PROPOFOL 10,000 MCG/ML (20ML) VIAL IV ONE; +SUMA1TAB12 PO; +naproxen PO
[2021-05-05 09:59] LABS: U PREG PATIENT NEGATIVE (NEG)
[2021-05-05 11:32] VITALS: BP 131/84
--- NOTE | 2021-05-11 18:15 | PATHOLOGY ---
[facility] Accession Number: [id number] . 01 Material submitted: . ANTRUM - ANTRUM GASTRITIS . 01 Clinical history: . DYSPHAGIA/GERD . 02 Diagnosis: Gastric biopsy, antrum: - Chronic gastritis, mild. (JPM:[facility]; 05/10/2021) [facility] 05/11/2021 0839 Local . 02 Comment: Sections of the gastric biopsy reveal gastric antral mucosa showing congestion and mild chronic inflammation. There are a few admixed eosinophils. A properly controlled immunoperoxidase stain for Helicobacter is negative for Helicobacter organisms. (JPM:[facility]; 05/10/2021) . Special stain: Immunoperoxidase stain for Helicobacter . 02 Electronically signed: . Stefano Toscano MD, Pathologist NPI- [id number] . 01 Gross description: . Received in formalin labeled "Tae, Alana, antrum gastritis" is a fragment of sidhu-brown soft tissue measuring 0.4 x 0.3 x 0.1 cm. The specimen is submitted entirely in A1. ([facility] 05/06/2021[place] [facility] 05/06/2021 1048 Local . 02 Pathologist provided ICD-10: K29.50 . 02 CPT . 713154, [id number] Specimen Comment: A courtesy copy of this report has been sent to [phone] Specimen Comment: Report sent to Performed at: 01 [facility] [address], [place] [id number] MD Brian Ramirez MD Phone: [phone] Performed at: 02 [facility] [address] [place], [place] [id number] MD Stefano Toscano MD Phone: [phone]
== END | disposition home or self-care (01) ==
LOC: SURG 09:32
PROVIDERS: ATTEND Internal Medicine Gastroenterology
DX: R13.10 Dysphagia, unspecified (principal); R12 Heartburn; K29.50 Unspecified chronic gastritis without bleeding; K31.89 Other diseases of stomach and duodenum; Z79.899 Other long term (current) drug therapy; Z98.890 Other specified postprocedural states; Z72.89 Other problems related to lifestyle; Z83.3 Family history of diabetes mellitus; Z91.040 Latex allergy status; Z88.5 Allergy status to narcotic agent; Z88.8 Allergy status to other drugs, medicaments and biological substances
CPT/HCPCS: 43239; 43450; 81025; 88305; 88342; J2001; J2704; J7120; 43235; 43249